=== PATIENT | female | born 2000 | race African-American/Black ===

== ENCOUNTER 2023-10-24 11:11 | Emergency (ER) | payer OTHER ==
[~2023-10-24] VITALS: Ht 175.3 cm; Wt 86.0 kg
[2023-10-24 11:36] VITALS: TEMP 98.3
[2023-10-24] MEDS ORDERED: IBUP-1492 PO (12:24)
[2023-10-24 13:09] VITALS: BP 100/56; PULSE 82; RESP 16
== END 2023-10-24 13:33 | disposition home or self-care (01) ==
LOC: EMS 11:13
DX: S93.402A Sprain of unspecified ligament of left ankle, initial encounter (principal); X50.1XXA Overexertion from prolonged static or awkward postures, initial encounter; Y93.89 Activity, other specified; Y92.89 Other specified places as the place of occurrence of the external cause; Y99.8 Other external cause status
CPT/HCPCS: 29515; 99283

== ENCOUNTER 2025-06-28 13:24 | Emergency (ER) | payer OTHER ==
[~2025-06-28] VITALS: Ht 177.8 cm; Wt 91.8 kg
[~2025-06-28 13:24] MED LIST: IBUP-1492 PO
[2025-06-28 13:36] VITALS: TEMP 98.2
[2025-06-28] MEDS: IBUPROFEN 600 MG TABLET PO ONE (15:12)
[2025-06-28 15:17] VITALS: BP 124/78; PULSE 84; RESP 18; O2SAT 98
[2025-06-28] MEDS ORDERED: IBUP-1492 PO (17:00)
== END 2025-06-28 17:18 | disposition home or self-care (01) ==
LOC: EMS 13:24
DX: S43.52XA Sprain of left acromioclavicular joint, initial encounter (principal); Z79.899 Other long term (current) drug therapy; V49.9XXA Car occupant (driver) (passenger) injured in unspecified traffic accident, initial encounter; Y93.89 Activity, other specified; Y92.410 Unspecified street and highway as the place of occurrence of the external cause; Y99.8 Other external cause status
CPT/HCPCS: 71250; 72125; 72128; 72131; 72192; 74150; 84703; 99284